=== PATIENT | female | born 2000 | race Caucasian/White ===

== ENCOUNTER 2020-10-05 23:23 | Emergency (ER) | payer OTHER ==
[~2020-10-05] VITALS: Ht 175.3 cm; Wt 63.1 kg
[2020-10-05 23:44] VITALS: TEMP 97.7
[2020-10-06 00:40] LABS: BASO # 0.1 (0.0-0.2); BASO % 0.4 % (0.0-2.0); EOS # 0.1 (0.0-0.7); EOS % 0.7 % (0-4.0); GRAN # 9.9 (1.4-6.5); GRAN % 74.1 % (42.2-75.2); HEMATOCRIT 43.1 % (35.0-45.0); HEMOGLOBIN 14.8 g/dl (12.0-15.0); LYMPH # 2.6 (1.2-3.4); MEAN CELL VOLUME 85 fl (80.0-95.0); MEAN CORPUSCULAR HEMOGLOBIN 29 pg (26.0-32.0); MEAN CORPUSCULAR HGB CONC 34 g/dl (33.0-37.0); MEAN PLATELET VOLUME 9.5 fl (7.4-10.4); MONO # 0.7 (0.1-0.6); MONO % 5.5 % (1.7-9.3); PLATELET COUNT 253 K/mm3 (130-400); RED BLOOD COUNT 5.08 M/mm3 (4.10-5.30); REDCELL DISTRIBUTION WIDTH-CV 11.2 % (11.5-14.5)
[2020-10-06 00:49] LABS: MUCOUS Present /lpf; PH 6 (5-8); SQUAMOUS EPITHELIAL 20-50 /hpf; URINE APPEARANCE Cloudy; URINE BACTERIA None Seen /hpf; URINE BILIRUBIN Negative (NEGATIVE); URINE BLOOD Negative (NEGATIVE); URINE COLOR Yellow; URINE GLUCOSE Negative (NEGATIVE); URINE KETONE 1+ (NEGATIVE); URINE LEUKOCYTE ESTERASE Negative (NEGATIVE); URINE NITRATE Negative (NEGATIVE); URINE PROTEIN(semi-quant) Negative (NEGATIVE); URINE UROBILINOGEN Negative (NEGATIVE)
[2020-10-06 00:53] LABS: COLLECTION METHOD CLEAN CATCH
[2020-10-06 01:23] LABS: ALBUMIN 4.9 gm/dL (3.5-5.0); BILIRUBIN,TOTAL 0.7 mg/dL (0.0-1.0); CALCIUM 12.4 mg/dL (8.4-10.2); CREATININE, serum 0.67 (0.52-1.25); POTASSIUM 3.9 mmol/L (3.4-5.0); TOTAL PROTEIN 8.5 gm/dL (6.4-8.2)
[2020-10-06 01:53] LABS: TSH w REFLEX 3.74 uIU/mL (0.465-4.680)
[2020-10-06] MEDS ORDERED: CAPSAICIN60 GM TP (02:06)
[2020-10-06] MEDS ORDERED: ZOFRAN ODT4 MG PO (02:06)
[2020-10-06 02:15] VITALS: BP 131/70; PULSE 66
== END 2020-10-06 02:15 | disposition home or self-care (01) ==
LOC: COL.ER 23:23
PROVIDERS: Emergency Medicine
DX: E83.52 Hypercalcemia (principal); Z32.02 Encounter for pregnancy test, result negative
CPT/HCPCS: J3486; J7030

== ENCOUNTER 2020-11-17 08:49 | Emergency (ER) | payer OTHER ==
[~2020-11-17] VITALS: Ht 175.3 cm; Wt 63.6 kg
[~2020-11-17 08:49] MED LIST: CAPSAICIN60 GM TP; ZOFRAN ODT4 MG PO
[2020-11-17 08:57] VITALS: TEMP 98.3
[2020-11-17 09:45] LABS: BASO % 0.5 % (0.0-2.0); EOS # 0.2 (0.0-0.7); EOS % 2.4 % (0-4.0); GRAN # 5.6 (1.4-6.5); GRAN % 67.3 % (42.2-75.2); HEMATOCRIT 39.5 % (35.0-45.0); HEMOGLOBIN 13.2 g/dl (12.0-15.0); LYMPH % 23.6 % (20.0-51.0); MEAN CELL VOLUME 88 fl (80.0-95.0); MEAN CORPUSCULAR HEMOGLOBIN 29 pg (26.0-32.0); MEAN CORPUSCULAR HGB CONC 33 g/dl (33.0-37.0); MEAN PLATELET VOLUME 9.8 fl (7.4-10.4); MONO # 0.5 (0.1-0.6); PLATELET COUNT 232 K/mm3 (130-400); REDCELL DISTRIBUTION WIDTH-CV 11.5 % (11.5-14.5)
[2020-11-17 09:54] LABS: ALBUMIN 4.6 gm/dL (3.5-5.0); BILIRUBIN,TOTAL 0.8 mg/dL (0.0-1.0); CALCIUM 11.6 mg/dL (8.4-10.2); CREATININE, serum 0.69 (0.52-1.25); POTASSIUM 4.1 mmol/L (3.4-5.0); TOTAL PROTEIN 7.9 gm/dL (6.4-8.2)
[2020-11-17] MEDS ORDERED: EUCERIN1 CRE TOP (11:05)
[2020-11-17] MEDS ORDERED: ZOFRAN ODT4 MG PO (11:05)
[2020-11-17 12:51] VITALS: BP 135/89; PULSE 78
== END 2020-11-17 11:35 | disposition home or self-care (01) ==
LOC: COL.ER 08:49
PROVIDERS: Emergency Medicine
DX: R11.2 Nausea with vomiting, unspecified (principal); R21 Rash and other nonspecific skin eruption; Z20.822 Contact with and (suspected) exposure to COVID-19; Z32.02 Encounter for pregnancy test, result negative
CPT/HCPCS: J2405; J7120

== ENCOUNTER 2020-12-08 11:04 | Emergency (ER) | payer MEDICAID ==
[~2020-12-08] VITALS: Ht 175.3 cm; Wt 63.6 kg
[~2020-12-08 11:04] MED LIST changes: +EUCERIN1 CRE TOP
[2020-12-08 11:11] VITALS: TEMP 98.2
[2020-12-08 11:31] LABS: COLLECTION METHOD CLEAN CATCH
[2020-12-08 11:38] LABS: BASO # 0.1 (0.0-0.2); BASO % 0.5 % (0.0-2.0); EOS % 0.3 % (0-4.0); GRAN # 7.2 (1.4-6.5); GRAN % 64.5 % (42.2-75.2); HEMATOCRIT 42.9 % (35.0-45.0); HEMOGLOBIN 15.3 g/dl (12.0-15.0); LYMPH # 2.7 (1.2-3.4); LYMPH % 24.5 % (20.0-51.0); MEAN CELL VOLUME 83 fl (80.0-95.0); MEAN CORPUSCULAR HEMOGLOBIN 30 pg (26.0-32.0); MEAN CORPUSCULAR HGB CONC 36 g/dl (33.0-37.0); MEAN PLATELET VOLUME 9.7 fl (7.4-10.4); MONO # 1.1 (0.1-0.6); MONO % 9.7 % (1.7-9.3); PLATELET COUNT 325 K/mm3 (130-400); RED BLOOD COUNT 5.16 M/mm3 (4.10-5.30); REDCELL DISTRIBUTION WIDTH-CV 11.5 % (11.5-14.5)
[2020-12-08 11:49] LABS: MUCOUS Present /lpf; PH 6 (5-8); URINE APPEARANCE Hazy; URINE BACTERIA None Seen /hpf; URINE BILIRUBIN Negative (NEGATIVE); URINE BLOOD 3+ (NEGATIVE); URINE COLOR Yellow; URINE GLUCOSE Negative (NEGATIVE); URINE KETONE 2+ (NEGATIVE); URINE LEUKOCYTE ESTERASE Negative (NEGATIVE); URINE NITRATE Negative (NEGATIVE); URINE PROTEIN(semi-quant) 2+ (NEGATIVE); URINE RBC >50 /hpf; URINE UROBILINOGEN Negative (NEGATIVE)
[2020-12-08 11:53] LABS: ALBUMIN 5.3 gm/dL (3.5-5.0); BILIRUBIN,TOTAL 1.4 mg/dL (0.0-1.0); CALCIUM 12.4 mg/dL (8.4-10.2); CREATININE, serum 0.8 (0.52-1.25); POTASSIUM 3.6 mmol/L (3.4-5.0); TOTAL PROTEIN 9.2 gm/dL (6.4-8.2)
[2020-12-08] MEDS ORDERED: NORCO 325 MG-51 TAB PO (13:31)
[2020-12-08] MEDS ORDERED: ZOFRAN 4MG T4 MG/TAB PO (13:31)
[2020-12-08] MEDS ORDERED: PREDNISONE20 MG PO (13:42)
[2020-12-08 13:52] VITALS: BP 135/69; PULSE 114
== END 2020-12-08 13:52 | disposition home or self-care (01) ==
LOC: COL.ER 11:04
PROVIDERS: Nurse Practitioner Primary Care
DX: K52.9 Noninfective gastroenteritis and colitis, unspecified (principal); R11.2 Nausea with vomiting, unspecified; Z87.891 Personal history of nicotine dependence
CPT/HCPCS: J2270; J2405; J7030; Q9967

== ENCOUNTER 2021-04-02 12:56 | Emergency (ER) | payer MEDICAID ==
[~2021-04-02] VITALS: Ht 175.3 cm; Wt 63.6 kg
[~2021-04-02 12:56] MED LIST changes: +NORCO 325 MG-51 TAB PO; +PREDNISONE20 MG PO; +ZOFRAN 4MG T4 MG/TAB PO
[2021-04-02 13:10] VITALS: TEMP 98.2
[2021-04-02 14:37] LABS: STREP SCREEN NEGATIVE
[2021-04-02 14:41] LABS: MONOSCREEN NEGATIVE
[2021-04-02] MEDS ORDERED: AMOXICILLIN 8751 TAB PO (14:50)
[2021-04-02 14:55] VITALS: PULSE 106
== END 2021-04-02 14:56 | disposition home or self-care (01) ==
LOC: COL.ER 12:56
PROVIDERS: Nurse Practitioner Primary Care
DX: J01.90 Acute sinusitis, unspecified (principal); F17.290 Nicotine dependence, other tobacco product, uncomplicated
CPT/HCPCS: J1885

== ENCOUNTER 2022-01-26 10:23 | Emergency (ER) | payer MEDICAID ==
[~2022-01-26] VITALS: Ht 172.7 cm; Wt 59.1 kg
[~2022-01-26 10:23] MED LIST changes: +AMOXICILLIN 8751 TAB PO
[2022-01-26 10:37] VITALS: TEMP 98.6
[2022-01-26 11:22] LABS: COLLECTION METHOD CLEAN CATCH
[2022-01-26 11:32] LABS: MUCOUS Present (NOT PRESENT); PH 5 (5-8); URINE APPEARANCE Hazy (CLEAR/HAZY); URINE BACTERIA Rare /hpf (NONE SEEN); URINE BILIRUBIN Negative (NEGATIVE); URINE BLOOD 1+ (NEGATIVE); URINE COLOR Yellow (YELLOW); URINE GLUCOSE Negative (NEGATIVE); URINE KETONE Trace (NEGATIVE); URINE LEUKOCYTE ESTERASE Trace (NEGATIVE); URINE NITRATE Negative (NEGATIVE); URINE PROTEIN(semi-quant) Negative (NEGATIVE); URINE UROBILINOGEN Negative (NEGATIVE)
[2022-01-26 12:16] LABS: BASO # 0.1 K/mm3 (0.0-0.2); EOS # 0.1 K/mm3 (0.0-0.7); EOS % 1.9 % (0.0-4.0); GRAN % 58.1 % (42.2-75.2); HEMATOCRIT 40.1 % (37.0-47.0); HEMOGLOBIN 13.7 g/dl (12.5-16.0); LYMPH # 2.2 K/mm3 (1.2-3.4); LYMPH % 31.8 % (20.0-51.0); MEAN CELL VOLUME 86 fl (80.0-100.0); MEAN CORPUSCULAR HEMOGLOBIN 29 pg (27-31); MEAN CORPUSCULAR HGB CONC 34 g/dl (33.0-37.0); MEAN PLATELET VOLUME 9.3 fl (7.4-10.4); MONO # 0.5 K/mm3 (0.1-0.6); MONO % 6.9 % (1.7-9.3); PLATELET COUNT 256 K/mm3 (130-400); RED BLOOD COUNT 4.66 M/mm3 (4.10-5.30); REDCELL DISTRIBUTION WIDTH-CV 11.3 % (11.5-14.5)
[2022-01-26 12:30] LABS: ALBUMIN 4.4 gm/dL (3.5-5.0); BILIRUBIN,TOTAL 0.4 mg/dL (0.2-1.2); CALCIUM 11.4 mg/dL (8.4-10.2); CREATININE, serum 0.86 mg/dL (0.57-1.11); POTASSIUM 3.9 mmol/L (3.5-4.5); TOTAL PROTEIN 7.2 gm/dL (6.2-8.1)
[2022-01-26 13:15] VITALS: BP 145/84; PULSE 112
[2022-01-26] MEDS ORDERED: LEXAPRO 10MG10 MG PO (13:17)
[2022-01-26] MEDS ORDERED: ATIVAN 1MG T1 MG/TAB PO (13:17)
== END 2022-01-26 13:35 | disposition home or self-care (01) ==
LOC: COL.ER 10:23
PROVIDERS: Personal Emergency Response Attendant; Physician Assistant
DX: F41.9 Anxiety disorder, unspecified (principal); R06.02 Shortness of breath; F17.290 Nicotine dependence, other tobacco product, uncomplicated; Z28.310 Unvaccinated for COVID-19
CPT/HCPCS: J2060; J7030